=== PATIENT | female | born 1960 | race Caucasian/White ===

== ENCOUNTER 2020-09-25 09:00 | Day surgery (SDC) | payer MEDICARE, OTHER ==
[~2020-09-25] VITALS: Ht 162.6 cm; Wt 59.1 kg
[~2020-09-25 09:00] MED LIST: COLACE CLEAR50 MG PO; MOBIC15 MG PO; MS CONTIN15 MG PO; NEURONTIN100 MG PO; OXYCODONE HCL5 MG PO; PRILOSEC OTC20 MG PO; TIZANIDINE HCL4 M1 PO; TOPROL XL25 MG PO; TRAZODONE HCL50 MG PO; VITAMIN D350 MCG PO; VOLTAREN ARTHRI20 GM TOP; [UNRECOGNIZED DRUG - OTHER] PO
--- NOTE | 2020-09-25 10:45 | NUR ---
PT USES CALL LIGHT TO NOTIFT DS STAFF OR URGE TO VOID. PT STATES SHE TOOK SCD'S OFF DUE TO "MAKING MY LEGS SWEAT." PT EDUCATED ABOUT IMPORTANCE OF SCD'S DURING AND AFTER PROCEDURE. RN ASSIST PT TO BATHROOM, HOLDS DOOR PT IS PUSHING IV POLE. PT HAS STEADY GAIT. PT BACK TO RM 6, SPOUSE AT BEDSIDE.
[2020-09-25] MEDS ORDERED: KETOROLAC TROME10 MG PO (12:54)
[2020-09-25] MEDS ORDERED: CELECOXIB200 MG PO (12:54)
[2020-09-25] MEDS ORDERED: HYDROCODON-ACE1 EA11 PO (12:54)
--- NOTE | 2020-09-25 13:33 | NUR ---
09/25/20 Nikolas3 Yulisa Thomason 1259- PT ARRIVES TO PACU AROUSABLE WITH AN OPA IN PLACE. OPA REMOVED BY DAYNE GOINS RN. RESP EVEN AND UNLABORED. OXYGEN SAT HIGH 90'S TO 100% ON 6L VIA MASK. 1302- DAYNE GOINS CRNA SETTING UP FOR A BLOCK. 1308- OXYGEN TITRATED OFF.
--- NOTE | 2020-09-25 14:52 | NUR ---
STEADY ON FEET WITH ONE PERSON STAND BY ASSIST FOR AMBULATION TO BR. PT USING WALKER AND 50% OR LESS WEIGHTBEARING ON RIGHT HIP. UPON RISING FROM USING TOILET, PT LOST STRENGTH IN RIGHT LEG AND SLID INTO WALL / WALKER ON RIGHT SIDE. I CAUGHT HER AND KEPT HER FROM FALLING TO THE GROUND. SHE GAINED STRENGTH AND WAS ABLE TO STAND WITH ONE PERSON ASSIT. HELP CALLED. PT RETURNED TO BED WITH TWO PERSON ASSIST BUT UNDER HER OWN STRENGTH. NO BREAK IN THE SKIN IS NOTED BUT THERE IS A REDDENED AREA OVERLYING THE RIGHT RIB. NOTIFIED
--- NOTE | 2020-09-25 15:45 | NUR ---
PT IS DOING WELL, SHE HAS MET ALL DC CRITERIA. SHE INDICATES THAT SHE WOULD LIKE TO GO HOME. PT IS EDUCATED ON HOW TO BEST GET DRESSED.
--- NOTE | 2020-09-25 16:08 | NUR ---
PT IS GIVEN VERBAL DC INSTRUCTIONS, SHE AND VERBALIZE UNDERSTANDING. QUESTIONS ARE ASKED AND ANSWERED. PT IS TAKEN TO VEHICLE VIA WC.
--- NOTE | 2020-09-26 07:30 | OR ---
[facility] [address] [place], [place] [address] Signed DATE OF OPERATION: 09/25/2020 SURGEON: Samia Moran MD PREOPERATIVE DIAGNOSIS: Chronic bursitis, right hip. POSTOPERATIVE DIAGNOSES: 1. Chronic bursitis, right hip. 2. Gluteus medius tear. PROCEDURES PERFORMED: 1. Right greater trochanteric bursectomy with lengthening of IT band. 2. Repair of gluteus medius tendon. GATE ATTENDANT: Maria C Cordova PA-C. Maria C was present and critical for all portions of procedure. ANESTHESIA: General. BLOOD LOSS: 100 mL. IMPLANTS: 4.75 SwiveLock with FiberTape. BRIEF HISTORY: Bob is a 60-year-old female who has had longstanding history of chronic bursitis treated with injections and anti-inflammatories as well as physical therapy. This failed to control her symptoms. Risks and benefits of an IT band lengthening were discussed with her and she elected to proceed. DESCRIPTION OF PROCEDURE: Once consent was obtained, she was taken to the operating room. After adequate anesthesia, she was placed on the operating table in the left lateral decubitus position. All downside pressure points were well padded and an axillary roll was placed. The hip was then prepped and draped in a standard sterile fashion. The greater trochanter was easily identifiable and a 3 inch incision was centered over the anterior Electronically Signed By: SAMIA MORAN MD 09/26/20 0730 PATIENT NAME: BOB OSEI OPERATIVE REPORT DATE OF : 62 REPORT #: [id number] PHYSICIAN: SAMIA MORAN MD PCP: DAWIT LOCK MD REPORT IS CONFIDENTIAL AND NOT TO BE RELEASED WITHOUT AUTHORIZATION [facility] [address], [place] [address] Signed portion of this. This was carried through the skin and subcutaneous tissue and down on the IT band. A Z-type incision was made in the IT band and extended posteriorly. This allowed visualization of the bursa which was slightly thickened and indurated. This was removed in total. Visualization of the gluteus medius, particularly the anterior third of the gluteus medius was completely torn off the trochanter and not retracted. The gluteus minimus underneath was intact. The decision was then made to go ahead and repair the gluteus medius. The trochanter was cleared of debris down to a bleeding bony bed. A FiberTape suture was then placed in a tendon stitch and advanced to the greater trochanter. Utilizing the 4.75 self-punching anchor, we placed the anchor in the lateral aspect of the greater trochanter and advanced it until the tendon was well seated against the bone. Once this was accomplished, the suture ends were cut. We removed the hip. There was excellent stability. We did not feel we need any more sutures in it. Once this was completed, the hip was copiously irrigated. We then lengthened the IT band by 1.5 cm and repaired the Z-plasty with #1 Vicryl. The IT band was under minimal tension at the end of the procedure. The subcutaneous tissue was closed with #0 Stratafix, the skin with a 2-0 Monocryl and Steri-Strips. Wound was dressed with Acticoat 7 dressing and Crow wrap. She tolerated the procedure well. All sponge, needle, and instrument counts were correct. Samia Moran MD BA/JOHNNY /[id number] Copies: ~ Electronically Signed By: SAMIA MORAN MD 09/26/20 0730 PATIENT NAME: BOB OSEI OPERATIVE REPORT DATE OF : 62 REPORT #: [id number] PHYSICIAN: SAMIA MORAN MD PCP: DAWIT LOCK MD REPORT IS CONFIDENTIAL AND NOT TO BE RELEASED WITHOUT AUTHORIZATION
== END 2020-09-25 16:05 | disposition home or self-care (01) ==
LOC: DS 09:00
PROVIDERS: ATTEND Specialist
PROC: 0LQJ0ZZ Repair Right Hip Tendon, Open Approach (ICD-10-PCS; 2020-09-25)
PROC: 3E0T3BZ Introduction of Anesthetic Agent into Peripheral Nerves and Plexi, Percutaneous Approach (ICD-10-PCS; 2020-09-25)
PROC: 0MBL0ZZ Excision of Right Hip Bursa and Ligament, Open Approach (ICD-10-PCS; principal; 2020-09-25 10:45)
PROC: 0L8J0ZZ Division of Right Hip Tendon, Open Approach (ICD-10-PCS; 2020-09-25 10:45)
DX: M70.61 Trochanteric bursitis, right hip (principal); S76.011A Strain of muscle, fascia and tendon of right hip, initial encounter; G89.18 Other acute postprocedural pain; K21.9 Gastro-esophageal reflux disease without esophagitis; M19.90 Unspecified osteoarthritis, unspecified site; F17.210 Nicotine dependence, cigarettes, uncomplicated; X58.XXXA Exposure to other specified factors, initial encounter; Z91.048 Other nonmedicinal substance allergy status; Z79.899 Other long term (current) drug therapy; Z79.1 Long term (current) use of non-steroidal anti-inflammatories (NSAID); Z79.82 Long term (current) use of aspirin; Z88.8 Allergy status to other drugs, medicaments and biological substances
CPT/HCPCS: 01250; 64447; 76942; A9270; C1713; J0690; J1100; J1170; J1885; J2001; J2405; J2795; J3010; J7121

== ENCOUNTER 2020-10-26 22:00 | Emergency (ER) | payer MEDICARE, OTHER ==
[~2020-10-26] VITALS: Ht 162.6 cm; Wt 58.5 kg
[~2020-10-26 22:00] MED LIST changes: +CELECOXIB200 MG PO; +HYDROCODON-ACE1 EA11 PO; +KETOROLAC TROME10 MG PO
--- OUTSIDE RECORDS SUMMARY | 2020-10-26 22:02 | XMS ---
PreManage Notification: BOB OSEI Security Frame Tender Events No recent Security Events currently on file [facility] There are no care providers on record at this time. Stacey has no Care Guidelines for this patient. Subha VISIT COUNT (12 MO.) 1 [facility] TOTAL 1 NOTE: Visits indicate total known visits. ED/UCC VISIT TRACKING (12 MO.) 10/26/2020 22:00 [facility] [place] TYPE: Emergency COMPLAINT: - RT FOOT SWELLING INPATIENT VISIT TRACKING (12 MO.) No inpatient visits to display in this time frame [email or web address]
[2020-10-26] MEDS ORDERED: XARELTO20 MG PO (23:13)
== END 2020-10-27 01:31 | disposition home or self-care (01) ==
LOC: ED 22:00
DX: M10.9 Gout, unspecified (principal); F17.200 Nicotine dependence, unspecified, uncomplicated; Z88.8 Allergy status to other drugs, medicaments and biological substances; Z79.899 Other long term (current) drug therapy; Z79.891 Long term (current) use of opiate analgesic
CPT/HCPCS: 80053; 85025; 85610; 85730; 99283